=== PATIENT | male | born 1955 | race African-American/Black ===

== ENCOUNTER 2016-11-04 07:36 | Outpatient (CLI) ==
[2014-02-02 08:41] VITALS: BMI 36.3
[2016-11-04 08:03] LABS: BASOPHILS # (AUTO) 0.1 K/uL (0-0.2); BASOPHILS % (AUTO) 0.5 % (0.0-3.0); EOSINOPHILS # (AUTO) 0.2 K/ul (0.0-0.7); HEMATOCRIT 44.9 % (42.0-52.0); HEMOGLOBIN 15.1 g/dl (14.0-18.0); LYMPHOCYTES # (AUTO) 1.9 K/uL (0.60-3.4); LYMPHOCYTES % (AUTO) 19.9 (10.0-50.0); MEAN CORPUSCULAR HEMOGLOBIN 27.3 pg (27.0-31.0); MEAN CORPUSCULAR HGB CONC 33.6 (31.8-35.4); MEAN CORPUSCULAR VOLUME 81.2 fl (80.0-94.0); MONOCYTES # (AUTO) 0.7 K/uL (0.4-2.0); MONOCYTES % (AUTO) 7.3 (0-10); NEUTROPHILS # (AUTO) 6.6 K/ul (2.0-6.9); NEUTROPHILS % (AUTO) 69.3; PLATELET COUNT 306 10^3/uL (140-440); RED BLOOD COUNT 5.53 10^6/ul (4.70-6.10); WHITE BLOOD COUNT 9.45 K/ul (4.2-10.2)
[2016-11-04 08:19] LABS: ALBUMIN 3.8 g/dL (3.4-5.0); ALBUMIN/GLOBULIN RATIO 1.09; ANION GAP 16.1; BILIRUBIN,TOTAL 0.71 mg/dL (0.00-1.20); BUN/CREATININE RATIO 12.5; CALCIUM 9.9 mg/dL (8.2-10.2); CHOL/HDL RATIO 4.9 (4.5-6.4); CREATININE 1.04 mg/dL (0.60-1.10); POTASSIUM 4.1 mmol/L (3.5-5.1); TOTAL PROTEIN 7.3 g/dL (5.8-8.1)
[2016-11-07 07:48] LABS: PSA, FREE 0.79 ng/mL
== END 2016-11-04 07:37 | disposition home or self-care (01) ==
LOC: LAB 07:36
PROVIDERS: ATTEND Nurse Practitioner Family
DX: E11.9 Type 2 diabetes mellitus without complications (principal); E78.5 Hyperlipidemia, unspecified; I10 Essential (primary) hypertension; N40.0 Benign prostatic hyperplasia without lower urinary tract symptoms; R09.89 Other specified symptoms and signs involving the circulatory and respiratory systems; I50.9 Heart failure, unspecified
CPT/HCPCS: 36415; 80053; 80061; 83036; 85025

== ENCOUNTER 2017-03-04 07:56 | Emergency (ER) ==
[2017-03-04 08:00] VITALS: BP 151/94; TEMP 97.5; BMI 34.0
--- NOTE | 2017-03-04 08:09 | ED.PDOC ---
General ED Provider: Dr. JOSE DANIEL BERRY Chief Complaint: Rash Stated Complaint: Rash on arms; cleaned out yard last weekend Time Seen by Physician: 08:09 Mode of Arrival: Walk-In Information Source: Patient Primary Care Provider: [facility] Nursing and Triage Documentation Reviewed and Agree: Yes Review of Systems - Review Of Systems Constitutional: Reports: No symptoms Respiratory: Reports: No symptoms Musculoskeletal: Reports: No symptoms Skin: Reports: Rash (linear, bilateral arms and chest) All Other Systems: Reviewed and Negative Past Medical History - Past Medical History Previously Healthy: Yes Endocrine: Reports: DM 2 Cardiovascular: Reports: None Respiratory: Reports: None Hematological: Reports: None Gastrointestinal: Reports: None Genitourinary: Reports: None Neuro/Psych: Reports: None Musculoskeletal: Reports: None Cancer: Reports: None - Surgical History General Surgical History: Reports: Other (Colonoscopy) - Family History Family History: Reports: Unknown - Social History Smoking Status: Former smoker Hx Substance Use: No Alcohol Screening: None - Immunizations Tetanus Shot up to Date: Yes Physical Exam - Physical Exam Appearance: Well-appearing Eyes: RATNA, EOMI, Conjunctiva clear ENT: Nose normal, Oropharynx normal Neck: Supple Respiratory: Airway patent, Breath sounds clear, Respirations nonlabored Cardiovascular: RRR Musculoskeletal: Normal strength, ROM intact Skin: Warm, Dry, Normal color (Except for rash, linear, bilateral forearms and chest) Neurological: Sensation intact, Alert, Oriented Psychiatric: Affect appropriate, Mood appropriate Critical Care Note - Critical Care Note Total Time (mins): 10 Course - Course Orders, Labs, Meds: Orders Category Date Time Status Dexamethasone 4 mg/ml Inj [Decadron 4 mg/ml Sdv] MEDS 03/04/17 08:11 Discontinued 8 mg IM ONCE STA Medications Discontinued Medications Generic Name Dose Route Start Last Admin Trade Name Freq PRN Reason Stop Dose Admin Dexamethasone Sodium Phosphate 8 mg 03/04/17 08:11 03/04/17 08:21 Decadron 4 Mg/Ml Sdv IM 03/04/17 08:12 8 mg ONCE STA Administration Vital Signs: Temp Pulse Resp BP Pulse Ox 03/04/17 07:58 97.5 F L 82 16 151/94 H 96 Departure - Departure Time of Disposition: 08:28 Disposition: HOME SELF-CARE Discharge Problem: Poison claudette Instructions: Poison Claudette (ED) Condition: Good Pt referred to PMD for follow-up: Yes (call for appointment) Additional Instructions: Use your cream that you already have for poison claudette as previously instructed. Allergies/Adverse Reactions: Allergies No Known Allergies Allergy (Unverified 01/31/14 08:04) Home Medications: Ambulatory Orders Ascorbic Acid [Vitamin C] 500 mg PO DAILY 01/31/14 Aspirin [Aspirin Ec] 81 mg PO DAILY 01/31/14 [place]-3 Fatty Acids/Fish Oil [[place] 3 1,000 Mg Softgel] 1 each PO BID #2 Tamsulosin HCl [Flomax] 0.4 mg PO DAILY 11/07/14 Disposition Discussed With: Patient
[2017-03-04] MEDS ORDERED: DECADRON 4 MG/ML SDV IM STA (08:11)
== END 2017-03-04 08:32 | disposition home or self-care (01) ==
LOC: ED 07:56
DX: L23.7 Allergic contact dermatitis due to plants, except food (principal)
CPT/HCPCS: 96372; 99282

== ENCOUNTER 2017-05-05 08:22 | Outpatient (CLI) ==
[2017-05-05 09:04] LABS: ALBUMIN 3.9 g/dL (3.4-5.0); ALBUMIN/GLOBULIN RATIO 1.15; ANION GAP 13.5; BILIRUBIN,TOTAL 0.8 mg/dL (0.00-1.20); BUN/CREATININE RATIO 15.3; CALCIUM 10.3 mg/dL (8.2-10.2); CREATININE 0.98 mg/dL (0.60-1.10); POTASSIUM 4.5 mmol/L (3.5-5.1); TOTAL PROTEIN 7.3 g/dL (5.8-8.1)
== END 2017-05-05 08:23 | disposition home or self-care (01) ==
LOC: LAB 08:22
PROVIDERS: ATTEND Nurse Practitioner Family
DX: E11.9 Type 2 diabetes mellitus without complications (principal); E78.5 Hyperlipidemia, unspecified; I10 Essential (primary) hypertension
CPT/HCPCS: 36415; 80053; 80061; 83036

== ENCOUNTER 2017-11-09 08:45 | Outpatient (CLI) | END 2017-11-09 08:46 | disposition home or self-care (01) | LOC: LAB 08:45 | PROVIDERS: ATTEND Nurse Practitioner Family | DX: E11.9 Type 2 diabetes mellitus without complications (principal); I10 Essential (primary) hypertension; E78.5 Hyperlipidemia, unspecified; Z12.5 Encounter for screening for malignant neoplasm of prostate | CPT/HCPCS: 36415; 80053; 80061; 83036; 85025 ==

== ENCOUNTER 2018-05-17 10:04 | Outpatient (CLI) | payer OTHER | END 2018-05-17 10:05 | disposition home or self-care (01) | LOC: LAB 10:04 | PROVIDERS: ATTEND Nurse Practitioner Family | DX: E11.9 Type 2 diabetes mellitus without complications (principal); E78.5 Hyperlipidemia, unspecified | CPT/HCPCS: 36415; 80053; 80061; 83036 ==

== ENCOUNTER 2018-12-10 08:18 | Outpatient (CLI) | END 2018-12-10 08:19 | disposition home or self-care (01) | LOC: LAB 08:18 | PROVIDERS: ATTEND Nurse Practitioner Family | DX: E11.9 Type 2 diabetes mellitus without complications (principal); I10 Essential (primary) hypertension; E78.5 Hyperlipidemia, unspecified | CPT/HCPCS: 36415; 80053; 80061; 83036; 85025 ==

== ENCOUNTER 2018-12-16 10:23 | Outpatient (CLI) | END 2018-12-16 10:24 | disposition home or self-care (01) | LOC: LAB 10:23 | PROVIDERS: ATTEND Nurse Practitioner Family | DX: Z12.5 Encounter for screening for malignant neoplasm of prostate (principal) | CPT/HCPCS: 36415 ==

== ENCOUNTER 2019-02-26 12:30 | Emergency (ER) ==
[2019-02-26 12:33] VITALS: BP 139/84; TEMP 98.6; BMI 36.1
[2019-02-26] MEDS ORDERED: SOLU-MEDROL 125 MG IM STA (12:40)
[2019-02-26] MEDS ORDERED: ZANTAC PO STA (12:41)
[2019-02-26] MEDS ORDERED: CLARITIN PO STA (12:41)
--- NOTE | 2019-02-26 13:12 | ED.PDOC ---
General ED Provider: Dr. MARYJANE ARZOLA Chief Complaint: Rash Stated Complaint: was exposed to pioson CLAUDETTE then started having rash and itching on the arms and neck. took bendaryl prior to arrival Time Seen by Physician: 12:50 Mode of Arrival: Walk-In Information Source: Patient Primary Care Provider: ANTONIO POLANCO Nursing and Triage Documentation Reviewed and Agree: Yes Does patient meet sepsis criteria?: No System Inflammatory Response Syndrome: Not Applicable Sepsis Protocol: For patient's 13 years and over: Temp is 96.8 and below OR 101 and greater Pulse >90 BPM Resp >20/minute Acutely Altered Mental Status Are patient's symptoms suggestive of a new infection, such as: -Pneumonia -Skin, Soft Tissue -Endocarditis -UTI -Bone, Joint Infection -Implantable Device -Acute Abdominal Infection -Wound Infection -Meningitis -Blood Stream Catheter Infection -Unknown Skin Complaint Exam - Skin Rash/Itching Complaint/Exam Onset/Duration: 1 day Symptoms Are: Still present Initial Severity: Moderate Current Severity: Moderate Location: neck and arms Potential Exposures: Reports: Plants Prior Treatment: Benadryl prior to arrival Aggravating: Reports: None Alleviating: Reports: None Associated Signs and Symptoms: Denies: Difficulty breathing, Fever, Chills Skin Findings: Present: Urticaria Differential Diagnoses: Contact Dermatitis, Urticaria Review of Systems - Review Of Systems Constitutional: Reports: No symptoms Eyes: Reports: No symptoms Ears, Nose, Mouth, Throat: Reports: No symptoms Respiratory: Reports: No symptoms Cardiac: Reports: No symptoms GI: Reports: No symptoms : Reports: No symptoms Musculoskeletal: Reports: No symptoms Skin: Reports: Rash Neurological: Reports: No symptoms Endocrine: Reports: No symptoms Hematologic/Lymphatic: Reports: No symptoms All Other Systems: Reviewed and Negative Past Medical History - Past Medical History Previously Healthy: Yes Endocrine: Reports: DM 2 Cardiovascular: Reports: None Respiratory: Reports: None Hematological: Reports: None Gastrointestinal: Reports: None Genitourinary: Reports: None Neuro/Psych: Reports: None Musculoskeletal: Reports: None Cancer: Reports: None - Surgical History General Surgical History: Reports: Other (Colonoscopy) - Family History Family History: Reports: Unknown - Social History Smoking Status: Former smoker Hx Substance Use: No Alcohol Screening: None Physical Exam - Physical Exam Appearance: Obese Respiratory: Airway patent, Breath sounds clear, Breath sounds equal, Respirations nonlabored Cardiovascular: RRR, Pulses normal, No rub, No murmur Musculoskeletal: Normal strength, ROM intact, No edema, No calf tenderness Skin: Warm, Dry Neurological: Sensation intact, Motor intact, Reflexes intact, Cranial nerves intact, Alert, Oriented Psychiatric: Anxious Critical Care Note - Critical Care Note Total Time (mins): 0 Course - Course Orders, Labs, Meds: Orders Category Date Time Status Loratadine [Claritin] MEDS 02/26/19 12:41 Discontinued 10 mg PO ONCE STA Methylprednisolone Sod Succ/Pf [Solu-Medrol 125 mg] MEDS 02/26/19 12:40 Discontinued 125 mg IM ONCE STA Ranitidine HCl [Zantac] MEDS 02/26/19 12:41 Discontinued 300 mg PO ONCE STA Medications Discontinued Medications Generic Name Dose Route Start Last Admin Trade Name Aneudyq PRN Reason Stop Dose Admin Loratadine 10 mg 02/26/19 12:41 02/26/19 12:58 Claritin PO 02/26/19 12:42 10 mg ONCE STA Administration Methylprednisolone Sodium Succinate 125 mg 02/26/19 12:40 02/26/19 12:58 Solu-Medrol 125 Mg IM 02/26/19 12:41 125 mg ONCE STA Administration Ranitidine HCl 300 mg 02/26/19 12:41 02/26/19 12:58 Zantac PO 02/26/19 12:42 300 mg ONCE STA Administration Vital Signs: Temp Pulse Resp BP Pulse Ox 02/26/19 12:32 98.6 F 94 H 20 139/84 97 Departure - Departure Time of Disposition: 13:10 Disposition: HOME SELF-CARE Discharge Problem: Poison claudette dermatitis Instructions: Poison Claudette (ED) Condition: Stable Pt referred to PMD for follow-up: Yes IPMP verified?: No Additional Instructions: Avoid Poison Claudette taKe medications as prescribed Follow up with PCP in 3 days if not better. use over the counter Benadryl as needed for itching. Prescriptions: Prednisone 20 mg PO DAILYWM #5 tablet Allergies/Adverse Reactions: Allergies No Known Allergies Allergy (Verified 02/26/19 12:33) Home Medications: Ambulatory Orders Ascorbic Acid [Vitamin C] 500 mg PO DAILY 01/31/14 Aspirin [Aspirin Ec] 81 mg PO DAILY 01/31/14 [place]-3 Fatty Acids/Fish Oil [[place] 3 1,000 Mg Softgel] 1 each PO BID #2 Tamsulosin HCl [Flomax] 0.4 mg PO DAILY 11/07/14 Prednisone 20 mg PO DAILYWM #5 tablet 02/26/19 Disposition Discussed With: Patient
== END 2019-02-26 13:23 | disposition home or self-care (01) ==
LOC: ED 12:30
DX: L23.7 Allergic contact dermatitis due to plants, except food (principal)
CPT/HCPCS: 96372; 99282

== ENCOUNTER 2019-04-09 07:46 | Outpatient (CLI) | END 2019-04-09 07:47 | disposition home or self-care (01) | LOC: LAB 07:46 | PROVIDERS: ATTEND Nurse Practitioner Family | DX: E11.9 Type 2 diabetes mellitus without complications (principal); I10 Essential (primary) hypertension; E78.5 Hyperlipidemia, unspecified | CPT/HCPCS: 36415; 80053; 80061; 83036 ==